=== PATIENT | female | born 1990 | race African-American/Black ===

== ENCOUNTER 2020-02-28 12:16 | Emergency (ER) | payer OTHER ==
[2020-02-28 12:21] VITALS: BP 137/81; PULSE 107; TEMP 98; BMI 30.7
--- NOTE | 2020-02-28 13:13 | PDOC ---
History of Present Illness - General Chief Complaint: Urinary Problem Stated Complaint: UTI SYMPTOMS Time Seen by Provider: 02/28/20 12:54 - History of Present Illness Initial Comments: HPI Pt is a 30yo F 12weeks with PMH who presents with increased urinary frequency and urgency for 2 days. Pt called OB office on Saturday and described symptoms, but states they did not perform further follow up. Reports dark, malodorous urine since Saturday. Denies dysuria, hematuria, flank pain. Reports lower quadrant abdominal cramping x2 days a/w scant pink vaginal discharge. Denies f/c, chest pain, SOB, n/v, diarrhea, constipation. OB: [facility] PMH: denies Meds: denies Allergies: NKDA Social: denies tobacco, etoh, illicit drug use Review of Systems CONSTITUTIONAL:denies fever, chills, generalized weakness HEENT:denies rhinorrhea, nasal congestion, sore throat, visual changes CARDIOVASCULAR:denies chest pain, syncope, palpitations, irregular heart rate, lightheadedness, peripheral edema RESPIRATORY:denies cough, shortness of breath, wheezing, hemoptysis GASTROINTESTINAL: denies abdominal pain, nausea, vomiting, diarrhea, constipation, melena, hematochezia GENITOURINARY:reports frequency, urgency, denies dysuria, hematuria, flank pain MUSCULOSKELETAL:denies myalgia, arthralgia HEMATOLOGIC/IMMUNOLOGIC:denies easy bleeding, easy bruising ENDOCRINE: denies unexplained weight gain, unexplained weight loss NEUROLOGIC:denies headache, loss of consciousness, focal weakness or paresthesias, dizziness SKIN:denies rash, itching, pallor Physical Exam General: awake, alert, fully oriented, in no acute distress, well developed, well nourished Head: normocephalic, atraumatic Eyes: PERRL, EOMI, anicteric sclera, conjunctiva clear ENT: Auricles normal inspection, hearing grossly normal, oropharynx clear without exudates, moist mucous membranes Neck: supple, normal ROM Lung: equal breath sounds b/l, CTA b/l, no crackles, wheezes; no distress, speaks full sentences Heart: RRR, normal S1, S2, no murmurs appreciated Abdomen: soft, non tender, normoactive bowel sounds, no guarding, rebound, masses Extremities: normal ROM, no edema, no erythema or tenderness, DP/PT pulses 2+ and symmetric, no clubbing, cyanosis Neuro: CN2-12 grossly intact, moves all extremities, normal speech, normal gait, sensation intact Skin: warm, dry, no rashes or lesions noted Pelvic exam: External genitalia normal without lesions, Vaginal vault is clear without blood. Physiologic discharge noted on exam, Cervix is long and closed. No cervical motion tenderness, Uterus is nontender and normal in size. L sided mild tenderness to palpation, Adnexa are nontender and without masses. MDM Pt is a 30yo F 12weeks with PMH who presents with increased urinary frequency and urgency for 2 days. Elevated BP, tachycardic DDx including but not limited to: UTI, threatened Workup: labs, UA, TVUS TX: 1L NS UA: +nitrite, +1 LE, bacteriuria Will give 1 dose of Keflex TVUS: single intrauterine gestation of 13 weeks, 2 days. FHR 162bpm, anterior uterine myoma, 1.6cm left ovarian cyst Labs: no leukocytosis, no anemia, electrolytes WNL, bhcg 85180 Re-assessment: Patient stable for discharge. Informed of all lab and imaging results. Given follow up instructions and strict return precautions. Patient expressed understanding and agree to plan Disposition: discharge Past History - Medical History Allergies/Adverse Reactions: Allergies Allergy/AdvReac Type Severity Reaction Status Date / Time No Known Allergies Allergy Verified 02/28/20 12:21 Home Medications: Ambulatory Orders Cephalexin Monohydrate [Keflex -] 500 mg PO BID #14 capsule 02/28/20 COPD: No - Reproductive History Is Patient Now?: Yes - Psycho-Social/Smoking History Smoking History: Never smoked - Substance Abuse Hx (Audit-C & DAST Scrn) How often the patient has a drink containing alcohol: Never Score: In Men: 4 or > Positive; In Women: 3 or > Positive: 0 Screen Result (Pos requires Nsg. Audit-10AR): Negative *Physical Exam - Vital Signs Last Vital Signs Temp Pulse Resp BP Pulse Ox 98 F 107 H 18 137/81 100 02/28/20 12:18 02/28/20 12:18 02/28/20 12:18 02/28/20 12:18 02/28/20 12:18 ED Treatment Course - LABORATORY CBC & Chemistry Diagram: 02/28/20 14:12 02/28/20 14:12 Discharge - Discharge Information Problems reviewed: Yes Clinical Impression/Diagnosis: UTI (urinary tract infection) Qualifiers: Urinary tract infection type: site unspecified Hematuria presence: without hematuria Qualified Code(s): N39.0 - Urinary tract infection, site not specified Condition: Stable Disposition: HOME - Admission No - Additional Discharge Information Prescriptions: Cephalexin Monohydrate [Keflex -] 500 mg PO BID #14 capsule - Follow up/Referral Referrals: Sho Taylor MD [Primary Care Provider] - - Patient Discharge Instructions Patient Printed Discharge Instructions: DI for Urinary Tract Infection (UTI) Additional Instructions: You came into the ER urinary frequency and urgency and cramping. In the ED, you were evaluated with urinalysis, blood work and ultrasound. Your urine results indicate that you have an infection in your urine. You do not appear to be an acute need for immediate hospitalization. You were advised to follow up with your OBGYN within 1 week. You were given a prescription for Keflex 500mg. Take this two times a day for 7 days. Come back to the ER immediately with any new or worsening concerns. Thank you for coming to the [facility] ER. We hope you feel better soon! - Post Discharge Activity
[2020-02-28] MEDS ORDERED: SODIUM CHLORIDE 1,000 ML IV STA (13:47)
[2020-02-28 13:51] LABS: EPI CELLS 33 /uL (0-25.1); HYALINE CASTS 18 /uL (0-3.1); URINE APPEARANCE CLOUDY; URINE BACTERIA >9,000 /uL (0-1359); URINE BILIRUBIN NEGATIVE (NEGATIVE); URINE COLOR DK YELLOW; URINE GLUCOSE (UA) NEGATIVE (NEGATIVE); URINE KETONE NEGATIVE (NEGATIVE); URINE LEUK ESTERASE 1+ (NEGATIVE); URINE NITRITE POSITIVE (NEGATIVE); URINE PROTEIN NEGATIVE (NEGATIVE); URINE WBC 334 /uL (0-25.8)
[2020-02-28] MEDS ORDERED: CEPHALEXIN MONOHYDRATE 500 MG CAPSULE (UD) PO STA (14:08)
--- NOTE | 2020-02-28 14:13 | PDOC ---
Documentation entered by Shadi Lopez SCRIBE, acting as scribe for Anthony Kimble MD. Anthony Kimble MD: This documentation has been prepared by the John carter Angel, SCRIBE, under my direction and personally reviewed by me in its entirety. I confirm that the documentation accurately reflects all work, treatment, procedures, and medical decision making performed by me. Attending Attestation - Resident Resident Name: Renae Oliver - ED Attending Attestation I have performed the following: I have examined & evaluated the patient, The case was reviewed & discussed with the resident, I agree w/resident's findings & plan, Exceptions are as noted - HPI HPI: 02/28/20 14:06 The patient is a 30 year old female (G2,P0,A1) with no significant past medical history who presents to the ED with lower abdominal pain and abnormal urine since Saturday. The patient states since Saturday she has noticed a pinkish vaginal discharge. She has also noticed a smelly, darker urine for the past few days, noting stuff floating in the urine. The patient reports abdominal pain which she describes as an intermittent cramping sensation.The patient also reports slight back pain since her symptoms started as well. The patient notes going to see her OBGYN on the and everything seems fine. The patient denies fevers/chills, dizziness, dysuria, h/a, cp, sob, or any headaches. - Physicial Exam PE: 02/28/20 14:12 GENERAL: The patient is awake, alert, and fully oriented, Nontoxic - in no acute distress. LUNGS: Breath sounds equal, clear to auscultation bilaterally. No wheezes, no crackles, no rales. HEART: Regular rate and rhythm, normal S1 and S2 without murmur, rub or gallop. ABDOMEN: Soft, nontender, normoactive bowel sounds. No guarding, no rebound. No masses. - Medical Decision Making 02/28/20 14:08 suspect UTI UA reviewed, cw uti will treat with keflex Discharge - Discharge Information Problems reviewed: Yes Clinical Impression/Diagnosis: UTI (urinary tract infection) Qualifiers: Urinary tract infection type: site unspecified Hematuria presence: without hematuria Qualified Code(s): N39.0 - Urinary tract infection, site not specified Condition: Stable Disposition: HOME - Additional Discharge Information Prescriptions: Cephalexin Monohydrate [Keflex -] 500 mg PO BID #14 capsule - Follow up/Referral Referrals: Sho Taylor MD [Primary Care Provider] - - Patient Discharge Instructions Patient Printed Discharge Instructions: DI for Urinary Tract Infection (UTI) Additional Instructions: You came into the ER urinary frequency and urgency and cramping. In the ED, you were evaluated with urinalysis, blood work and ultrasound. Your urine results indicate that you have an infection in your urine. You do not appear to be an acute need for immediate hospitalization. You were advised to follow up with your OBGYN within 1 week. You were given a prescription for Keflex 500mg. Take this two times a day for 7 days. Come back to the ER immediately with any new or worsening concerns. Thank you for coming to the [facility] ER. We hope you feel better soon! - Post Discharge Activity
[2020-02-28 14:24] LABS: URINE RBC 23.6 /uL (0-23.9)
[2020-02-28 16:21] LABS: BASO % 0.6 % (0-2.0); EOS % 1.5 % (0-4.5); HEMOGLOBIN 14.1 GM/dL (10.7-15.3); LYMPH % 45.4 % (8-40); MCH 30.5 pg (25.7-33.7); MCHC 34.4 g/dl (32.0-36.0); MEAN CELL VOLUME 88.5 fl (80-96); MONO % 7.8 % (3.8-10.2); NEUT % 44.7 % (42.8-82.8); PLATELET COUNT 319 K/MM3 (134-434); RBC 4.64 M/mm3 (3.60-5.2); RDW 13.1 % (11.6-15.6); WHITE BLOOD COUNT 7.1 K/mm3 (4.0-10.0)
[2020-02-28 17:04] LABS: ALBUMIN 3.4 g/dl (3.4-5.0); BILIRUBIN,TOTAL 0.3 mg/dL (0.2-1); BLOOD UREA NITROGEN 5.2 mg/dL (7-18); CALCIUM 9.2 mg/dL (8.5-10.1); CREATININE 0.6 mg/dL (0.55-1.3); POTASSIUM 4.2 mmol/L (3.5-5.1); TOT PROT 7.2 g/dl (6.4-8.2)
[2020-02-28] MEDS ORDERED: CEPHALEXIN MONOHYDRATE 500 MG CAPSULE (UD) ONE (17:17)
== END 2020-02-28 17:47 | disposition home or self-care (01) ==
LOC: JER 12:16
PROC: 3E0337Z Introduction of Electrolytic and Water Balance Substance into Peripheral Vein, Percutaneous Approach (ICD-10-PCS; principal; 2020-02-28)
DX: N39.0 Urinary tract infection, site not specified (principal)
CPT/HCPCS: 36415; 76801-TC; 76817-TC; 80053; 81003; 84702; 85025; 86850; 86900; 86901; 87086; 87186; 96360; 99284-25